=== PATIENT | male | born 1990 | race Caucasian/White ===

== ENCOUNTER → 2020-06-20 | Outpatient (CLI) | payer OTHER ==
[2020-06-20 08:07] LABS: Basophils % (A) 1 %; Eosinophils % (A) 5 %; HGB 15.5 gm/dL (13.0-17.5); Hypochromasia Moderate; Lymphocytes % (A) 33 %; MCH 23.8 pg (25.0-35.0); MCV 76.9 fL (80.0-100.0); Mean Platelet Volume 6.4; Microcytosis Slight; Monocytes % (A) 6 %; Neutrophils # (A) 4.1 k/uL (1.3-7.7); Neutrophils % (A) 53 %; Platelet Count 326 k/uL (150-450); WBC 7.7 k/uL (3.8-10.6)
[2020-06-20 08:08] LABS: Basophils # (A) 0.1 k/uL (0-0.2); Eosinophils # (A) 0.4 k/uL (0-0.7); Lymphocytes # (A) 2.5 k/uL (1.0-4.8); Monocytes # (A) 0.5 k/uL (0-1.0)
[2020-06-20 11:39] LABS: % Iron Saturation 12.88 (15.00-50.00); African American GFR (CKD) 139.9 (60.0-200.0); Albumin 4.3 g/dL (3.80-4.90); Albumin/Globulin Ratio 1.72 (1.60-3.17); BUN/Creat Ratio 7.5 Ratio (12.00-20.00); Globulin 2.5 g/dL (1.6-3.3); Non-African American GFR(CKD) 120.7 (60.0-200.0); Potassium 3.9 mmol/L (3.5-5.5); Total Bilirubin 0.4 mg/dL (0.3-1.2); Total Protein 6.8 g/dL (6.2-8.2)
[2020-06-20 11:48] LABS: Ferritin 156.9 ng/mL (22.0-322.0)
== END | disposition home or self-care (01) ==
LOC: LABWHC1 07:14
PROVIDERS: ATTEND Family Medicine
DX: R79.89 Other specified abnormal findings of blood chemistry (principal); D50.9 Iron deficiency anemia, unspecified
CPT/HCPCS: 36415; 80053; 82607; 82672; 82728; 83540; 83550; 84402; 84403; 85025

== ENCOUNTER → 2022-09-02 | Outpatient (CLI) | payer OTHER ==
[2022-09-02 18:44] LABS: Basophils # (A) 0.04 X 10*3/uL (0.00-0.10); Basophils % (A) 0.4 %; Eosinophils # (A) 0.21 X 10*3/uL (0.04-0.35); HCT 47.8 % (39.6-50.0); Immature Grans, Automated 0.3 %; Lymphocytes # (A) 1.93 X 10*3/uL (0.90-5.00); Lymphocytes % (A) 18.3 %; MCH 25.2 pg (27.0-32.0); MCHC 31.4 g/dL (32.0-37.0); MCV 80.3 fL (80.0-97.0); Mean Platelet Volume 9.4 fL (9.5-12.2); Monocytes # (A) 0.75 X 10*3/uL (0.20-1.00); Monocytes % (A) 7.1 %; NRBC Per 100 WBC 0 /100 WBCS (0.0-0.0); Neutrophils # (A) 7.57 X 10*3/uL (1.80-7.70); Neutrophils % (A) 71.9 %; Platelet Count 363 X 10*3/uL (140-440); RBC 5.95 X 10*6/uL (4.40-5.60); RDW 14.9 % (11.5-14.5); WBC 10.53 X 10*3/uL (4.50-10.00)
[2022-09-02 19:49] LABS: % Iron Saturation 10.73 (15.00-50.00); African American GFR (CKD) 145.5 (60.0-200.0); Albumin 4.1 g/dL (3.8-4.9); Albumin/Globulin Ratio 1.23 (1.60-3.17); Anion Gap 12.6 mmol/L (10.00-18.00); BUN/Creat Ratio 8.92 Ratio (12.00-20.00); Blood Urea Nitrogen 6.3 mg/dL (9.0-27.0); Calcium 9.5 mg/dL (8.7-10.3); Carbon Dioxide 26.4 mmol/L (20.0-27.5); Globulin 3.3 g/dL (1.6-3.3); Non-African American GFR(CKD) 125.5 (60.0-200.0); Potassium 3.7 mmol/L (3.5-5.5); Total Bilirubin 0.4 mg/dL (0.30-1.20); Total Protein 7.4 g/dL (6.2-8.2)
== END | disposition home or self-care (01) ==
LOC: LABWHC1 11:05
PROVIDERS: ATTEND Family Medicine
DX: E53.8 Deficiency of other specified B group vitamins (principal); D50.9 Iron deficiency anemia, unspecified; R79.89 Other specified abnormal findings of blood chemistry
CPT/HCPCS: 36415; 80053; 82607; 82672; 82728; 82746; 83540; 83550; 84402; 84403; 85025

== ENCOUNTER → 2023-07-10 | Outpatient (CLI) | payer OTHER ==
[2023-07-10 16:29] LABS: Basophils # (A) 0.06 X 10*3/uL (0.00-0.10); Basophils % (A) 0.9 %; Eosinophils # (A) 0.16 X 10*3/uL (0.04-0.35); Eosinophils % (A) 2.4 %; HCT 48.4 % (39.6-50.0); HGB 14.7 d/dL (13.0-17.0); Lymphocytes # (A) 1.63 X 10*3/uL (0.90-5.00); Lymphocytes % (A) 24.3 %; MCH 24.2 pg (27.0-32.0); MCHC 30.4 d/dL (32.0-37.0); MCV 79.6 FL (80.0-97.0); Mean Platelet Volume 9.2 FL (9.5-12.2); Monocytes % (A) 8.9 %; NRBC Per 100 WBC 0 X 10*3/uL (0.00-0.01); Neutrophils # (A) 4.24 X 10*3/uL (1.80-7.70); Neutrophils % (A) 63.2 %; Platelet Count 289 X 10*3/uL (140-440); RBC 6.08 X 10*6/uL (4.40-5.60); RDW 14.9 % (11.5-14.5); WBC 6.71 X 10*3/uL (4.50-10.00)
[2023-07-10 16:49] LABS: ALT 26 U/L (10-49); AST 20 U/L (14-35); Albumin 4.2 d/dL (3.8-4.9); Alkaline Phosphatase 95 U/L (41-126); BUN/Creat Ratio 6.88 Ratio (12.00-20.00); Blood Urea Nitrogen 5.5 mg/dL (9.0-27.0); Calcium 9.4 mg/dL (8.7-10.3); Carbon Dioxide 29.7 mmol/L (21.6-31.8); Chloride 100 mmol/L (96-109); Chol/HDL Ratio 5.45 Ratio; Glucose 77 mg/dL (70-110); LDL Cholesterol,Calculated 131.1 mg/dL (0.0-131.0); Potassium 3.9 mmol/L (3.5-5.5); Sodium 141 mmol/L (135-145); Total Bilirubin 0.3 mg/dL (0.3-1.2); Total Protein 7.2 d/dL (6.2-8.2)
== END | disposition home or self-care (01) ==
LOC: LABWHC1 09:31
PROVIDERS: ATTEND Family Medicine
DX: Z00.00 Encounter for general adult medical examination without abnormal findings (principal); R79.89 Other specified abnormal findings of blood chemistry
CPT/HCPCS: 36415; 80053; 80061; 82672; 83036; 84402; 84403; 84443; 85025

== ENCOUNTER → 2024-01-19 | Outpatient (CLI) | payer OTHER ==
[2024-01-19 15:47] LABS: Basophils # (A) 0.05 X 10*3/uL (0.00-0.10); Basophils % (A) 0.6 %; Eosinophils # (A) 0.16 X 10*3/uL (0.04-0.35); Eosinophils % (A) 1.9 %; HCT 46.6 % (39.6-50.0); HGB 14.5 g/dL (13.0-17.0); Lymphocytes # (A) 2.53 X 10*3/uL (0.90-5.00); Lymphocytes % (A) 29.8 %; MCH 24.9 pg (27.0-32.0); MCHC 31.1 g/dL (32.0-37.0); MCV 79.9 FL (80.0-97.0); Mean Platelet Volume 9.1 FL (9.5-12.2); Monocytes # (A) 0.54 X 10*3/uL (0.20-1.00); Monocytes % (A) 6.4 %; NRBC Per 100 WBC 0 X 10*3/uL (0.00-0.01); Neutrophils # (A) 5.17 X 10*3/uL (1.80-7.70); Neutrophils % (A) 60.9 %; Platelet Count 341 X 10*3/uL (140-440); RBC 5.83 X 10*6/uL (4.40-5.60); RDW 14.4 % (11.5-14.5); WBC 8.48 X 10*3/uL (4.50-10.00)
[2024-01-19 16:33] LABS: ALT 30 U/L (10-49); AST 24 U/L (14-35); Albumin 4.1 g/dL (3.8-4.9); Albumin/Globulin Ratio 1.32 Ratio (1.60-3.17); Alkaline Phosphatase 89 U/L (41-126); Blood Urea Nitrogen 7.6 mg/dL (9.0-27.0); Carbon Dioxide 25.4 mmol/L (21.6-31.8); Chloride 101 mmol/L (96-109); Chol/HDL Ratio 6.18 Ratio; Creatine Kinase 103 U/L (35-257); Globulin 3.1 g/dL (1.6-3.3); Glucose 88 mg/dL (70-110); Iron 39 UG/DL (65-175); LDL Cholesterol,Calculated 134.1 mg/dL (0.0-131.0); Potassium 3.4 mmol/L (3.5-5.5); Sodium 142 mmol/L (135-145); Total Bilirubin 0.4 mg/dL (0.3-1.2); Total Iron Binding Capacity 291 UG/DL (228-460); Total Protein 7.2 g/dL (6.2-8.2)
[2024-01-20 17:01] LABS: Estrogens Total 43 pg/mL
== END | disposition home or self-care (01) ==
LOC: LABWHC1 08:34
PROVIDERS: ATTEND Family Medicine
DX: E53.8 Deficiency of other specified B group vitamins (principal); E78.5 Hyperlipidemia, unspecified; D50.9 Iron deficiency anemia, unspecified; R79.89 Other specified abnormal findings of blood chemistry
CPT/HCPCS: 36415; 80053; 80061; 82040; 82550; 82607; 82672; 82728; 82746; 83540; 83550; 84270; 84403; 85025